=== PATIENT | female | born 1985 | race Caucasian/White ===

== ENCOUNTER 2024-04-16 09:58 | Day surgery (SDC) | payer BC ==
[2024-04-09 13:58] VITALS: BMI 24.0
[2024-04-16 10:25] VITALS: RESP 16
[2024-04-16 11:44] VITALS: PULSE 74; TEMP 97.6
[2024-04-16 12:12] VITALS: BP 107/66
== END 2024-04-16 12:40 | disposition home or self-care (01) ==
LOC: FASU-ENDO 09:58
PROVIDERS: ATTEND Internal Medicine Gastroenterology
PROC: 0DJD8ZZ Inspection of Lower Intestinal Tract, Via Natural or Artificial Opening Endoscopic (ICD-10-PCS; principal; 2024-04-16 11:13)
DX: Z12.11 Encounter for screening for malignant neoplasm of colon (principal); K64.1 Second degree hemorrhoids; K64.8 Other hemorrhoids; K57.30 Diverticulosis of large intestine without perforation or abscess without bleeding
CPT/HCPCS: 81025